=== PATIENT | male | born 1950 | race Hispanic/Latino ===

== ENCOUNTER 2022-04-28 18:21 | Inpatient (IN) | payer SELFPAY ==
[2022-04-28] MEDS ORDERED: cefTRIAXone\\ROCEPHIN 1 GM VIAL ONE (19:02)
[2022-04-28 19:08] LABS: #Lymphocytes 1.3 thou/uL (1.20-3.40); #Monocytes 0.8 thou/uL (0.11-0.59); #Neutrophils 8.5 thou/uL (1.40-6.50); %Basophils 0.2 % (0.0-1.0); %Eosinophils 0.2 % (0.0-10.0); %Lymphocytes 12.4 % (21.0-51.0); %Monocytes 7.8 % (0.0-10.0); %Neutrophils 79.5 % (42.0-75.0); Hemoglobin 10.4 g/dL (14.0-18.0); Mean Corpuscular HGB CONC 33.3 g/dL (32.0-36.0); Mean Corpuscular Hemoglobin 32.5 pg (27.0-31.0); Mean Corpuscular Volume 97.5 fl (78.0-98.0); Mean Platelet Volume 9.3 fL (7.4-10.4); Platelet Count 167 10x3/uL (130-400); RBC Distribution Width 11.4 % (11.5-14.5); Red Blood Cell (RBC) Count 3.21 mill/uL (4.70-6.10); White Blood Cell (WBC) Count 10.7 10x3/uL (4.8-10.8)
[2022-04-28 19:33] LABS: ALT (SGPT) 18 U/L (8-55); AST (SGOT) 18 U/L (5-34); Albumin 3.5 g/dL (3.4-4.8); Alkaline Phosphatase 114 U/L (40-110); Anion Gap 13 mmol/L (10-20); BUN (Urea Nitrogen) 24 mg/dL (8.4-25.7); Bilirubin, Total 0.6 mg/dL (0.2-1.2); Calc. Creatinine Clearance 0 mL/min (70-130); Calcium 8.3 mg/dL (7.8-10.44); Carbon Dioxide 22 mmol/L (23-31); Chloride 95 mmol/L (98-107); Estimated GFR 28; Globulin 3.6 g/dL (2.4-3.5); Potassium 3.9 mmol/L (3.5-5.1); Protein, Total 7.1 g/dL (5.8-8.1); Sodium 126 mmol/L (136-145)
[2022-04-28] MEDS ORDERED: Azithromycin 500 MG VIAL ONE (19:42)
[2022-04-28 19:49] LABS: SARS-CoV-2 NAA Rapid Test Not Detected (NotDetected)
[2022-04-28 19:49] LABS: Glucose 498 mg/dL (80-115)
[2022-04-28] MEDS ORDERED: Dextrose 5% in Water 1,000 ML IV PRN (20:42)
[2022-04-28] MEDS ORDERED: Insulin Regular 300 UNITS/3 ML VIAL SC PRN (20:42)
[2022-04-28] MEDS ORDERED: Dextrose 50% Abboject 50 ML SYRINGE SLOW IVP PRN (20:42)
[2022-04-28] MEDS ORDERED: Ondansetron ODT 4 MG TAB PO PRN (20:43)
[2022-04-28] MEDS ORDERED: Insulin Regular 300 UNITS/3 ML VIAL ONE (20:44)
[2022-04-28] MEDS ORDERED: Oseltamivir 75 MG CAP PO SCH (21:00)
[2022-04-28 21:18] LABS: Hemoglobin A1c 11.1 % (4.0-6.0)
[2022-04-28 22:52] VITALS: BMI 31.6
[2022-04-29] MEDS ORDERED: Acetaminophen 325 MG TAB PO SCH (00:30)
[2022-04-29] MEDS ORDERED: hydrALAZINE 25 MG TAB PO SCH (00:30)
[2022-04-29] MEDS: Heparin 5,000 UNITS/ML VIAL SC SCH ×4 (00:35→22:28)
[2022-04-29] MEDS: Famotidine 20 MG TAB PO SCH ×2 (00:35→22:29)
[2022-04-29] MEDS: Insulin Glargine 30 UNITS/0.3 ML VIAL SC SCH ×2 (00:35→22:28)
[2022-04-29] MEDS: Lactated Ringer's 1,000 ML IV SCH ×2 (00:35→13:48)
[2022-04-29] MEDS: Doxycycline 100 MG CAP PO SCH ×3 (00:35→22:29)
[2022-04-29] MEDS: Acetaminophen 325 MG TAB PO PRN ×2 (00:36→13:47)
[2022-04-29] MEDS: Oseltamivir 6 MG/ML ORAL SUSP PO SCH ×2 (00:36→22:30)
[2022-04-29 03:08] LABS: #Lymphocytes 1.1 thou/uL (1.20-3.40); #Monocytes 0.8 thou/uL (0.11-0.59); #Neutrophils 7.5 thou/uL (1.40-6.50); %Lymphocytes 12.1 % (21.0-51.0); %Monocytes 8.7 % (0.0-10.0); %Neutrophils 79.2 % (42.0-75.0); Hemoglobin 8.8 g/dL (14.0-18.0); Mean Corpuscular HGB CONC 33.3 g/dL (32.0-36.0); Mean Corpuscular Hemoglobin 32.8 pg (27.0-31.0); Mean Corpuscular Volume 98.3 fl (78.0-98.0); Platelet Count 141 10x3/uL (130-400); RBC Distribution Width 11.2 % (11.5-14.5); Red Blood Cell (RBC) Count 2.67 mill/uL (4.70-6.10); White Blood Cell (WBC) Count 9.4 10x3/uL (4.8-10.8)
[2022-04-29 03:21] LABS: Anion Gap 12 mmol/L (10-20); BUN (Urea Nitrogen) 21 mg/dL (8.4-25.7); Calc. Creatinine Clearance 42 mL/min (70-130); Calcium 7.6 mg/dL (7.8-10.44); Carbon Dioxide 19 mmol/L (23-31); Chloride 105 mmol/L (98-107); Estimated GFR 38; Glucose 191 mg/dL (80-115); Potassium 3.6 mmol/L (3.5-5.1); Sodium 132 mmol/L (136-145)
[2022-04-29] MEDS: cefTRIAXone\\ROCEPHIN 1 GM in Sodium Chloride 0.9% 100 ML IVPB SCH (08:28)
[2022-04-29] MEDS: hydrALAZINE 20 MG/ML VIAL SLOW IVP PRN (12:52)
[2022-04-29] MEDS: hydrALAZINE 25 MG TAB PO SCH ×2 (12:52→22:29)
[2022-04-29] MEDS ORDERED: Ipratropium Oral Inhaler INH PRN (14:05)
[2022-04-29] MEDS ORDERED: Albuterol Sulfate 2.5 mg/3 ml Neb NEB PRN (14:30)
[2022-04-29] MEDS ORDERED: Labetalol HCl 100 MG/20 ML VIAL SLOW IVP PRN (14:30)
[2022-04-29] MEDS: Benzonatate 100 MG CAP PO PRN (16:42)
[2022-04-29] MEDS: Mometasone/Formoterol 200/5 60 PUFF INH SCH (19:08)
[2022-04-30 03:44] LABS: #Lymphocytes 1.4 thou/uL (1.20-3.40); #Monocytes 0.6 thou/uL (0.11-0.59); #Neutrophils 5.1 thou/uL (1.40-6.50); %Basophils 0.2 % (0.0-1.0); %Eosinophils 0.2 % (0.0-10.0); %Lymphocytes 19.8 % (21.0-51.0); %Monocytes 8.6 % (0.0-10.0); %Neutrophils 71.2 % (42.0-75.0); Hemoglobin 9.3 g/dL (14.0-18.0); Mean Corpuscular HGB CONC 32.9 g/dL (32.0-36.0); Mean Corpuscular Hemoglobin 32.5 pg (27.0-31.0); Mean Corpuscular Volume 98.8 fl (78.0-98.0); Mean Platelet Volume 8.7 fL (7.4-10.4); Platelet Count 172 10x3/uL (130-400); RBC Distribution Width 11.7 % (11.5-14.5); Red Blood Cell (RBC) Count 2.86 mill/uL (4.70-6.10); White Blood Cell (WBC) Count 7.2 10x3/uL (4.8-10.8)
[2022-04-30 04:06] LABS: ALT (SGPT) 19 U/L (8-55); AST (SGOT) 20 U/L (5-34); Albumin 2.8 g/dL (3.4-4.8); Alkaline Phosphatase 79 U/L (40-110); Anion Gap 11 mmol/L (10-20); BUN (Urea Nitrogen) 23 mg/dL (8.4-25.7); Bilirubin, Total 0.3 mg/dL (0.2-1.2); Calc. Creatinine Clearance 43 mL/min (70-130); Calcium 7.8 mg/dL (7.8-10.44); Carbon Dioxide 22 mmol/L (23-31); Chloride 106 mmol/L (98-107); Estimated GFR 39; Globulin 2.6 g/dL (2.4-3.5); Glucose 233 mg/dL (80-115); Magnesium 2.1 mg/dL (1.6-2.6); Potassium 3.9 mmol/L (3.5-5.1); Protein, Total 5.4 g/dL (5.8-8.1); Sodium 135 mmol/L (136-145)
[2022-04-30] MEDS: Mometasone/Formoterol 200/5 60 PUFF INH SCH ×2 (06:36→18:35)
[2022-04-30] MEDS: Doxycycline 100 MG CAP PO SCH (08:17)
[2022-04-30] MEDS: cefTRIAXone\\ROCEPHIN 1 GM in Sodium Chloride 0.9% 100 ML IVPB SCH (08:18)
[2022-04-30] MEDS: Heparin 5,000 UNITS/ML VIAL SC SCH ×3 (08:18→20:31)
[2022-04-30] MEDS: hydrALAZINE 25 MG TAB PO SCH ×3 (08:18→20:29)
[2022-04-30] MEDS: Famotidine 20 MG TAB PO SCH (20:28)
[2022-04-30] MEDS: Benzonatate 100 MG CAP PO PRN (20:28)
[2022-04-30] MEDS: Insulin Glargine 30 UNITS/0.3 ML VIAL SC SCH (20:29)
[2022-04-30] MEDS: Oseltamivir 6 MG/ML ORAL SUSP PO SCH (20:30)
[2022-04-30] MEDS ORDERED: Dextrose 50% Abboject 50 ML SYRINGE SLOW IVP PRN (20:50)
[2022-04-30] MEDS ORDERED: Dextrose 5% in Water 1,000 ML IV PRN (20:50)
[2022-04-30] MEDS ORDERED: HumaLOG 300 UNITS/3 ML VIAL SC PRN (20:50)
[2022-04-30] MEDS: Losartan 25 MG TAB PO SCH (21:50)
[2022-05-01 04:17] LABS: Anion Gap 15 mmol/L (10-20); BUN (Urea Nitrogen) 28 mg/dL (8.4-25.7); Calc. Creatinine Clearance 41 mL/min (70-130); Calcium 8.5 mg/dL (7.8-10.44); Carbon Dioxide 18 mmol/L (23-31); Chloride 105 mmol/L (98-107); Estimated GFR 37; Glucose 235 mg/dL (80-115); Potassium 3.9 mmol/L (3.5-5.1); Sodium 134 mmol/L (136-145)
[2022-05-01] MEDS: hydrALAZINE 20 MG/ML VIAL SLOW IVP PRN (05:05)
[2022-05-01] MEDS: HumaLOG 300 UNITS/3 ML VIAL SC PRN ×2 (06:27→17:09)
[2022-05-01] MEDS: Mometasone/Formoterol 200/5 60 PUFF INH SCH ×2 (07:46→19:00)
[2022-05-01] MEDS: hydrALAZINE 25 MG TAB PO SCH ×4 (08:14→20:42)
[2022-05-01] MEDS: Heparin 5,000 UNITS/ML VIAL SC SCH ×3 (08:15→20:43)
[2022-05-01] MEDS: Losartan 25 MG TAB PO SCH ×2 (08:15→20:42)
[2022-05-01] MEDS: Nicotine 14 MG PATCH TD SCH (13:29)
[2022-05-01] MEDS ORDERED: Insulin Glargine 30 UNITS/0.3 ML VIAL SC SCH (19:31)
[2022-05-01] MEDS: Famotidine 20 MG TAB PO SCH (20:44)
[2022-05-01] MEDS: Labetalol HCl 100 MG TAB PO SCH (20:45)
[2022-05-01] MEDS: Oseltamivir 6 MG/ML ORAL SUSP PO SCH (20:49)
[2022-05-02] MEDS: HumaLOG 300 UNITS/3 ML VIAL SC PRN (06:28)
[2022-05-02 06:30] LABS: Anion Gap 14 mmol/L (10-20); BUN (Urea Nitrogen) 29 mg/dL (8.4-25.7); Calc. Creatinine Clearance 40 mL/min (70-130); Calcium 8.4 mg/dL (7.8-10.44); Carbon Dioxide 20 mmol/L (23-31); Chloride 109 mmol/L (98-107); Estimated GFR 36; Glucose 166 mg/dL (80-115); Potassium 3.6 mmol/L (3.5-5.1); Sodium 139 mmol/L (136-145)
[2022-05-02] MEDS: Labetalol HCl 100 MG TAB PO SCH (07:36)
[2022-05-02] MEDS: Losartan 25 MG TAB PO SCH (07:36)
[2022-05-02] MEDS: hydrALAZINE 25 MG TAB PO SCH (07:36)
[2022-05-02] MEDS: Heparin 5,000 UNITS/ML VIAL SC SCH (07:37)
[2022-05-02 07:39] VITALS: BP 170/92
[2022-05-02] MEDS ORDERED: Oseltamivir 6 MG/ML ORAL SUSP PO SCH (09:00)
[2022-05-02] MEDS: Mometasone/Formoterol 200/5 60 PUFF INH SCH (10:15)
[2022-05-02] MEDS: Nicotine 14 MG PATCH TD SCH (11:22)
[2022-05-02 12:20] VITALS: TEMP 97.7
== END 2022-05-02 15:51 | disposition home or self-care (01) | DRG 193 ==
LOC: ERS 18:21 → IMCU/EMU 19:52
PROVIDERS: ADMIT Family Medicine; ATTEND Family Medicine
PROC: 5A09357 Assistance with Respiratory Ventilation, Less than 24 Consecutive Hours, Continuous Positive Airway Pressure (ICD-10-PCS; principal; 2022-04-28)
DX: J10.00 Influenza due to other identified influenza virus with unspecified type of pneumonia (principal); J96.01 Acute respiratory failure with hypoxia; N17.9 Acute kidney failure, unspecified; E87.1 Hypo-osmolality and hyponatremia; Z20.822 Contact with and (suspected) exposure to COVID-19; E11.65 Type 2 diabetes mellitus with hyperglycemia; I10 Essential (primary) hypertension; F17.210 Nicotine dependence, cigarettes, uncomplicated; Z83.3 Family history of diabetes mellitus; Z79.899 Other long term (current) drug therapy; Z79.84 Long term (current) use of oral hypoglycemic drugs
CPT/HCPCS: 36415; 36416; 71045; 80048; 80053; 83036; 83605; 83735; 83880; 83935; 84300; 84484; 85025; 87040; 93005; 94660; 94760; 96361; 96365; 96374; 96375; J0360; J0456; J0696; J1644; J1815; J3490; J7120